=== PATIENT | female | born 1960 | race Caucasian/White ===

== ENCOUNTER 2024-02-02 08:31 | Day surgery (SDC) | payer OTHER ==
[~2024-02-02] VITALS: Ht 157.5 cm; Wt 86.6 kg
[2024-02-02] MEDS ORDERED: diphenhydrAMINE 50 MG/ML VIAL ONE (09:28)
[2024-02-02] MEDS ORDERED: LIDOCAINE 2% 100 MG/5 ML UJET TP ONE (09:29)
[2024-02-02] MEDS ORDERED: fentaNYL citrate 0.05 MG/ML VIAL ONE (09:29)
[2024-02-02] MEDS ORDERED: MIDAZOLAM 5 MG/5 ML VIAL ONE (09:29)
[2024-02-02] MEDS: MIDAZOLAM 2 MG/2 ML VIAL IVP ONE (09:34)
[2024-02-02] MEDS: fentaNYL citrate 0.05 MG/ML VIAL IVP ONE (09:35)
== END 2024-02-02 11:07 | disposition home or self-care (01) ==
LOC: MDS 08:31 → MMU 08:35 → MDS 11:07
PROVIDERS: ATTEND Internal Medicine Gastroenterology
DX: K92.1 Melena (principal); D12.2 Benign neoplasm of ascending colon; K57.30 Diverticulosis of large intestine without perforation or abscess without bleeding; R68.81 Early satiety; K59.00 Constipation, unspecified; K21.9 Gastro-esophageal reflux disease without esophagitis; E78.00 Pure hypercholesterolemia, unspecified; E66.9 Obesity, unspecified; Z68.34 Body mass index [BMI] 34.0-34.9, adult; Z79.899 Other long term (current) drug therapy
CPT/HCPCS: 45380; 45385; J2250; J3010; J1200